=== PATIENT | female | born 1945 | race Caucasian/White ===

== ENCOUNTER 2018-06-17 10:57 | Outpatient (CLI) | payer MEDICARE ==
[2018-06-17 12:34] LABS: BASOPHILS # (AUTO) 0.02 x10^3/uL (0-0.1); BASOPHILS % (AUTO) 0 % (0-1); EOSINOPHILS % (AUTO) 0 % (1-7); LYMPHOCYTES # (AUTO) 0.99 x10^3/uL (1-3.4); LYMPHOCYTES % (AUTO) 17 % (22-44); MD NO; MEAN CORPUSCULAR HEMOGLOBIN 30.9 pg (27.0-34.8); MEAN CORPUSCULAR HGB CONC 33.2 g/dL (32.4-35.8); MEAN CORPUSCULAR VOLUME 92.9 fL (80-100); MEAN PLATELET VOLUME 8.5 fL (7.4-10.4); MONOCYTES # (AUTO) 0.37 x10^3/uL (0.2-0.8); MONOCYTES % (AUTO) 6 % (2-9); NEUTROPHILS # (AUTO) 4.57 x10^3/uL (1.8-6.8); NEUTROPHILS % (AUTO) 77 % (42-75); PLATELET COUNT 277 x10^3/uL (130-400); RED BLOOD COUNT 4.66 x10^6/uL (3.82-5.3); RED CELL DISTRIBUTION WIDTH 15.6 % (9.6-15.2)
[2018-06-17 12:39] LABS: PROTHROMBIN TIME 10.5 Seconds (9.6-11.5)
[2018-06-17 12:41] LABS: ANION GAP 4 mmol/L (5-15); CALCIUM 8.6 mg/dL (8.5-10.1); CHLORIDE 109 mmol/L (98-107)
[2018-06-17 12:43] LABS: CREATININE 0.86 mg/dL (0.55-1.02)
[2018-06-17] MEDS ORDERED: ACET-1600 PO (12:54)
[2018-06-17] MEDS ORDERED: THYR60TA PO (12:54)
[2018-06-17] MEDS ORDERED: CELE200C PO (12:54)
[2018-06-17 12:56] LABS: MICROSCOPIC INDICATED
[2018-06-17 12:59] LABS: CULTURE INDICATED? YES
== END 2018-06-17 23:59 | disposition home or self-care (01) ==
LOC: STAR 10:57
PROVIDERS: ATTEND Neurological Surgery
DX: M43.16 Spondylolisthesis, lumbar region (principal); M47.814 Spondylosis without myelopathy or radiculopathy, thoracic region; I44.1 Atrioventricular block, second degree; R79.1 Abnormal coagulation profile; R82.998 Other abnormal findings in urine
CPT/HCPCS: 36415; 71046; 80048; 81001; 85025; 85610; 85730; 87086; 87147; 93005

== ENCOUNTER → 2018-06-28 | Outpatient (CLI) | payer MEDICARE ==
[~2018-06-28] MED LIST: ACET-1600 PO; CELE200C PO; THYR60TA PO
== END | disposition home or self-care (01) ==
LOC: STAR 10:36
PROVIDERS: ATTEND Neurological Surgery
DX: Z01.818 Encounter for other preprocedural examination (principal); M43.16 Spondylolisthesis, lumbar region
CPT/HCPCS: 93005